=== PATIENT | male | born 1985 | race Caucasian/White ===

== ENCOUNTER 2021-08-05 11:33 | Inpatient (IN) | payer SELFPAY ==
[2021-08-05 13:35] LABS: Hemoglobin 14.7 g/dL (14.0-18.0); Mean Corpuscular HGB CONC 33.4 g/dL (32.0-36.0); Mean Corpuscular Hemoglobin 30.3 pg (27.0-31.0); Mean Corpuscular Volume 90.7 fL (78.0-98.0); Mean Platelet Volume 9.2 fL (7.4-10.4); Platelet Count 163 thou/uL (130-400); RBC Distribution Width 12.8 % (11.5-14.5); Red Blood Cell (RBC) Count 4.86 mill/uL (4.70-6.10)
[2021-08-05 13:51] LABS: ALT (SGPT) 154 U/L (8-55); AST (SGOT) 50 U/L (5-34); Alkaline Phosphatase 178 U/L (40-110); Anion Gap 16 mmol/L (10-20); BUN (Urea Nitrogen) 33 mg/dL (8.9-20.6); Bilirubin, Total 1.7 mg/dL (0.2-1.2); Calc. Creatinine Clearance 0 mL/min (70-130); Calcium 8.4 mg/dL (7.8-10.44); Carbon Dioxide 25 mmol/L (22-29); Chloride 95 mmol/L (98-107); Globulin 2.8 g/dL (2.4-3.5); Glucose 255 mg/dL (70-105); Potassium 4.3 mmol/L (3.5-5.1); Protein, Total 5.8 g/dL (6.0-8.3); Sodium 132 mmol/L (136-145)
[2021-08-05 13:56] LABS: White Blood Cell (WBC) Count 23.5 thou/uL (4.8-10.8)
[2021-08-05 13:57] LABS: Band 34 % (5-11); Lymphocytes 3 % (21-51); MDiff Complete? YES; Metamyelocyte 3 % (0-0); Monocytes 3 % (0-10); Myelocyte 1 % (0-0); Neutrophil 55 % (42-75); Platelet Morphology Comment Appears Adequate; RBC Morphology Normal; Reactive Lymphocytes 1 % (0-10)
[2021-08-05] MEDS ORDERED: Ketorolac Tromethamine 30 MG/ML VIAL ONE (14:48)
[2021-08-05] MEDS ORDERED: Cefepime 2 GM VIAL ONE (14:48)
[2021-08-05] MEDS ORDERED: Ondansetron PF 4 MG/2 ML Vial ONE (14:48)
[2021-08-05] MEDS ORDERED: Morphine 4 MG/ML VIAL ONE ×2 (14:48→17:13)
[2021-08-05] MEDS ORDERED: metroNIDAZOLE 500 MG in Premix Bag 1 BAG IVPB SCH (15:00)
[2021-08-05] MEDS ORDERED: VANCOMYCIN 2 GRAM/400 ML BAG 2 GM in Premix Bag 1 BAG IVPB SCH ×2 (17:15→19:15)
[2021-08-05 17:31] LABS: Actual Bicarbonate (HCO3v) 24 mEq/L (22-28); Base Excess -1.2 mEq/L (-2.0 to +3.0); Calcium, Ionized (venous) 0.97 mmol/L (1.16-1.32); Chloride (VBG) 96 mmol/L (98-106); Hemoglobin (Hb) 15.5 g/dL (13.2-17.3); Potassium (VBG) 4.48 mmol/L (3.70-5.30); Sodium 129.9 mmol/L (133-146); pH (venous) 7.39 (7.32-7.43)
[2021-08-05 17:37] LABS: Bacteria/HPF 2+ HPF (None Seen); Bilirubin Negative (Negative); Blood, Urine 2+ (Negative); Clarity Turbid (Clear); Glucose, Urine (Dipstick) 50 mg/dL (Negative); Ketone, Urine Negative (Negative); Leukocyte 500 Leu/uL (Negative); Nitrite Negative (Negative); Protein, Urine (Dipstick) 70 mg/dL (Neg-Trace); Squamous Epithelial 0-3 HPF (0-3); Urobilinogen Normal mg/dL (Less than 2); WBC/HPF 21-50 HPF (0-3)
[2021-08-05 17:43] LABS: Amphetamine Not Detected (NotDetected); Barbiturates Screen Not Detected (NotDetected); Benzodiazepine Screen Detected (NotDetected); Cocaine Metabolite Screen Not Detected (NotDetected); Methadone Not Detected (NotDetected); Methamphetamine Not Detected (NotDetected); Opiate Screen Detected (NotDetected); Oxycodone Screen Not Detected (NotDetected); Phencyclidine (PCP) Not Detected (NotDetected); THC/Cannabinoid Screen Not Detected (NotDetected); Tricyclic Screen Not Detected (NotDetected)
[2021-08-05] MEDS ORDERED: Ondansetron ODT 4 MG TAB PO PRN (18:26)
[2021-08-05] MEDS ORDERED: Ondansetron PF 4 MG/2 ML Vial IVP PRN (18:26)
[2021-08-05 20:28] VITALS: BMI 31.9
[2021-08-05] MEDS: Morphine 4 MG/ML VIAL SLOW IVP PRN (21:56)
[2021-08-05] MEDS: Famotidine 20 MG TAB PO SCH (21:57)
[2021-08-05] MEDS: Sodium Chloride 0.9% 1,000 ML IV SCH (22:03)
[2021-08-06] MEDS: Morphine 4 MG/ML VIAL SLOW IVP PRN ×5 (02:40→21:08)
[2021-08-06] MEDS: Cefepime 1 GM in Sodium Chloride 0.9% 100 ML IVPB SCH ×2 (02:41→14:01)
[2021-08-06] MEDS: Vancomycin 1.5 GRAM/300 ML BAG 1.5 GM in Premix Bag 1 BAG IVPB SCH ×3 (05:34→21:00)
[2021-08-06] MEDS: Acetaminophen 325 MG TAB PO PRN ×2 (05:42→17:38)
[2021-08-06 07:31] LABS: Hemoglobin 12.6 g/dL (14.0-18.0); Mean Corpuscular Hemoglobin 30.6 pg (27.0-31.0); Mean Corpuscular Volume 90.1 fL (78.0-98.0); Mean Platelet Volume 9.4 fL (7.4-10.4); Platelet Count 136 thou/uL (130-400); RBC Distribution Width 12.9 % (11.5-14.5); Red Blood Cell (RBC) Count 4.11 mill/uL (4.70-6.10); White Blood Cell (WBC) Count 13.6 thou/uL (4.8-10.8)
[2021-08-06 07:35] LABS: ALT (SGPT) 98 U/L (8-55); AST (SGOT) 47 U/L (5-34); Albumin 2.3 g/dL (3.5-5.0); Alkaline Phosphatase 117 U/L (40-110); Anion Gap 15 mmol/L (10-20); BUN (Urea Nitrogen) 24 mg/dL (8.9-20.6); Bilirubin, Total 2.9 mg/dL (0.2-1.2); Calc. Creatinine Clearance 160 mL/min (70-130); Calcium 7.3 mg/dL (7.8-10.44); Carbon Dioxide 20 mmol/L (22-29); Chloride 96 mmol/L (98-107); Globulin 2.7 g/dL (2.4-3.5); Glucose 145 mg/dL (70-105); Potassium 3.7 mmol/L (3.5-5.1); Sodium 127 mmol/L (136-145)
[2021-08-06 08:39] LABS: Band 45 % (5-11); Lymphocytes 9 % (21-51); MDiff Complete? YES; Monocytes 2 % (0-10); Neutrophil 44 % (42-75); Platelet Morphology Comment Appears Adequate; Polychromasia SLIGHT = 2-3 cells (100X) (0-2/hpf); Toxic Granulation SLIGHT
[2021-08-06] MEDS ORDERED: FLU VACC QS2021-22(6MOS UP)/PF 60 MCG/0.5 ML SYRINGE IM ONE (09:00)
[2021-08-06] MEDS: Enoxaparin Sodium 40 MG/0.4 ML SYRINGE SC SCH (10:06)
[2021-08-06] MEDS: Famotidine 20 MG TAB PO SCH ×2 (10:06→21:00)
[2021-08-06] MEDS: Sodium Chloride 0.9% 1,000 ML IV SCH (10:07)
[2021-08-06 11:56] LABS: SARS-CoV-2 PCR by NAA Not Detected (NotDetected)
[2021-08-06] MEDS ORDERED: HYDROcodone/Acetaminophen 10/325 mg Tablet PO PRN (14:49)
[2021-08-06] MEDS ORDERED: Morphine 4 MG/ML VIAL SLOW IVP SCH (15:00)
[2021-08-06] MEDS ORDERED: Morphine 4 MG/ML VIAL SLOW IVP PRN (15:00)
[2021-08-06] MEDS ORDERED: diphenhydrAMINE 50 MG/ML VIAL IVP SCH (17:30)
[2021-08-06] MEDS: diphenhydrAMINE 25 MG CAP PO PRN (21:08)
[2021-08-07] MEDS: Morphine 4 MG/ML VIAL SLOW IVP PRN ×7 (00:48→21:20)
[2021-08-07] MEDS: Vancomycin 1.5 GRAM/300 ML BAG 1.5 GM in Premix Bag 1 BAG IVPB SCH ×4 (02:29→20:43)
[2021-08-07] MEDS: diphenhydrAMINE 25 MG CAP PO PRN (03:40)
[2021-08-07] MEDS: Famotidine 20 MG TAB PO SCH ×2 (08:04→20:44)
[2021-08-07] MEDS: Enoxaparin Sodium 40 MG/0.4 ML SYRINGE SC SCH (08:04)
[2021-08-07 08:07] LABS: Hemoglobin 12.6 g/dL (14.0-18.0); Mean Corpuscular HGB CONC 32.9 g/dL (32.0-36.0); Mean Corpuscular Volume 91.1 fL (78.0-98.0); Mean Platelet Volume 9.3 fL (7.4-10.4); Platelet Count 161 thou/uL (130-400); RBC Distribution Width 12.9 % (11.5-14.5); Red Blood Cell (RBC) Count 4.21 mill/uL (4.70-6.10); White Blood Cell (WBC) Count 10.4 thou/uL (4.8-10.8)
[2021-08-07 08:18] LABS: Anion Gap 16 mmol/L (10-20); BUN (Urea Nitrogen) 23 mg/dL (8.9-20.6); Calc. Creatinine Clearance 177 mL/min (70-130); Calcium 7.9 mg/dL (7.8-10.44); Carbon Dioxide 21 mmol/L (22-29); Chloride 93 mmol/L (98-107); Glucose 102 mg/dL (70-105); Sodium 126 mmol/L (136-145)
[2021-08-07 08:44] LABS: Band 44 % (5-11); Lymphocytes 9 % (21-51); MDiff Complete? YES; Monocytes 2 % (0-10); Neutrophil 41 % (42-75); Platelet Morphology Comment Appears Adequate; Polychromasia SLIGHT = 2-3 cells (100X) (0-2/hpf); Reactive Lymphocytes 4 % (0-10); Toxic Granulation SLIGHT
[2021-08-07 13:36] LABS: Vancomycin, Trough 19.1 ug/mL
[2021-08-07] MEDS: Lorazepam 0.5 MG TAB PO PRN ×2 (18:30→22:59)
[2021-08-08] MEDS: Vancomycin 1.5 GRAM/300 ML BAG 1.5 GM in Premix Bag 1 BAG IVPB SCH ×3 (01:52→17:29)
[2021-08-08] MEDS: Morphine 4 MG/ML VIAL SLOW IVP PRN ×5 (01:55→22:06)
[2021-08-08] MEDS: Lorazepam 0.5 MG TAB PO PRN (05:00)
[2021-08-08 07:40] LABS: Hemoglobin 11.4 g/dL (14.0-18.0); Mean Corpuscular HGB CONC 32.8 g/dL (32.0-36.0); Mean Corpuscular Volume 91.4 fL (78.0-98.0); Mean Platelet Volume 8.3 fL (7.4-10.4); Platelet Count 180 thou/uL (130-400); White Blood Cell (WBC) Count 10.9 thou/uL (4.8-10.8)
[2021-08-08] MEDS: Famotidine 20 MG TAB PO SCH ×2 (07:53→21:50)
[2021-08-08] MEDS: Enoxaparin Sodium 40 MG/0.4 ML SYRINGE SC SCH (07:54)
[2021-08-08 08:01] LABS: Anion Gap 14 mmol/L (10-20); BUN (Urea Nitrogen) 17 mg/dL (8.9-20.6); Calc. Creatinine Clearance 198 mL/min (70-130); Calcium 7.6 mg/dL (7.8-10.44); Carbon Dioxide 22 mmol/L (22-29); Chloride 92 mmol/L (98-107); Glucose 97 mg/dL (70-105); Potassium 3.9 mmol/L (3.5-5.1); Sodium 124 mmol/L (136-145)
[2021-08-08 08:02] LABS: Band 32 % (5-11); Eosinophils 2 % (0-10); Lymphocytes 6 % (21-51); MDiff Complete? YES; Metamyelocyte 3 % (0-0); Monocytes 5 % (0-10); Myelocyte 2 % (0-0); Neutrophil 49 % (42-75); Ovalocytes SLIGHT = 2-5 cells (100X) (0-1/hpf); Polychromasia SLIGHT = 2-3 cells (100X) (0-2/hpf); Reactive Lymphocytes 1 % (0-10)
[2021-08-08] MEDS ORDERED: Sodium Chloride 1 GM TAB PO SCH ×2 (09:00→10:37)
[2021-08-08 13:58] LABS: Vancomycin, Trough 21.4 ug/mL
[2021-08-08] MEDS ORDERED: PROPOFOL 200 MG/20 ML VIAL ONE (14:00)
[2021-08-08] MEDS ORDERED: Ondansetron PF 4 MG/2 ML Vial ONE ×2 (14:00→16:38)
[2021-08-08] MEDS ORDERED: Lidocaine 1% PF 5 ML VIAL ONE (14:00)
[2021-08-08] MEDS ORDERED: Dexamethasone 20 MG/5 ML VIAL ONE (14:00)
[2021-08-08] MEDS ORDERED: Succinylcholine 200 MG/10 ml SYRINGE FS ONE (14:00)
[2021-08-08] MEDS ORDERED: Ondansetron HCl/PF 4 MG/2 ML Vial IVP PRN (16:28)
[2021-08-08] MEDS ORDERED: HYDROmorphone 2 MG/ML VIAL SLOW IVP PRN (16:28)
[2021-08-08] MEDS ORDERED: Promethazine HCl 25 MG/ML VIAL IM PRN (16:28)
[2021-08-08] MEDS ORDERED: Promethazine HCl 25 MG/ML VIAL IVPB PRN (16:28)
[2021-08-08] MEDS ORDERED: Fentanyl 100 MCG/2 ML VIAL ONE (16:38)
[2021-08-08] MEDS: Sodium Chloride 0.9% 1,000 ML IV SCH (17:30)
[2021-08-08 20:05] LABS: Potassium 4.4 mmol/L (3.5-5.1)
[2021-08-08] MEDS: Oxacillin 2 GM in Sodium Chloride 0.9% 100 ML IVPB SCH (21:46)
[2021-08-09] MEDS: Lorazepam 0.5 MG TAB PO PRN ×3 (00:45→23:25)
[2021-08-09] MEDS: Oxacillin 2 GM in Sodium Chloride 0.9% 100 ML IVPB SCH ×6 (01:45→20:43)
[2021-08-09] MEDS: Sodium Chloride 0.9% 1,000 ML IV SCH ×3 (01:46→21:14)
[2021-08-09] MEDS: Morphine 4 MG/ML VIAL SLOW IVP PRN ×4 (04:58→20:43)
[2021-08-09 06:03] LABS: Band 12 % (5-11); Hypochromia SLIGHT = 6-15 cells (100X) (0-5/hpf); Lymphocytes 11 % (21-51); MDiff Complete? YES; Mean Corpuscular HGB CONC 33.2 g/dL (32.0-36.0); Mean Corpuscular Hemoglobin 30.7 pg (27.0-31.0); Mean Corpuscular Volume 92.3 fL (78.0-98.0); Mean Platelet Volume 8.4 fL (7.4-10.4); Monocytes 7 % (0-10); Neutrophil 70 % (42-75); Platelet Count 199 thou/uL (130-400); Platelet Morphology Comment Appears Adequate; RBC Distribution Width 13.1 % (11.5-14.5); Red Blood Cell (RBC) Count 3.59 mill/uL (4.70-6.10)
[2021-08-09 06:11] LABS: Anion Gap 15 mmol/L (10-20); BUN (Urea Nitrogen) 17 mg/dL (8.9-20.6); Calc. Creatinine Clearance 206 mL/min (70-130); Calcium 7.4 mg/dL (7.8-10.44); Carbon Dioxide 22 mmol/L (22-29); Chloride 98 mmol/L (98-107); Glucose 244 mg/dL (70-105); Potassium 4.5 mmol/L (3.5-5.1); Sodium 130 mmol/L (136-145)
[2021-08-09] MEDS: Famotidine 20 MG TAB PO SCH ×2 (09:08→20:43)
[2021-08-09] MEDS: Enoxaparin Sodium 40 MG/0.4 ML SYRINGE SC SCH (09:08)
[2021-08-09 11:33] LABS: Synovial Fluid, Protein 1.6 g/dL (Not Available); Synovial Fluid, Uric Acid 3.2 mg/dL (Not Available)
[2021-08-09 11:52] LABS: RBC Count-Automated (BF) 0 /cu.mm
[2021-08-09 12:10] LABS: WBC/Nucleated-Auto (BF) 1038 /cu.mm
[2021-08-09 12:11] LABS: BF Color Yellow; Body Fluid Source Synovial Fluid; Clarity Cloudy/Turbid (Clear); Tube # EDTA
[2021-08-09 12:15] LABS: BF Segmented Neutrophils 77 %; Cell Count Non Hematic 17 %; Lymphocytes 6 %
[2021-08-09 15:37] LABS: Vancomycin, Trough 1.1 ug/mL
[2021-08-09] MEDS: diphenhydrAMINE 25 MG CAP PO PRN (23:25)
[2021-08-10] MEDS: Oxacillin 2 GM in Sodium Chloride 0.9% 100 ML IVPB SCH ×6 (01:19→20:01)
[2021-08-10] MEDS: Morphine 4 MG/ML VIAL SLOW IVP PRN ×6 (02:24→23:34)
[2021-08-10] MEDS: Sodium Chloride 0.9% 1,000 ML IV SCH (04:46)
[2021-08-10 05:53] LABS: Anion Gap 11 mmol/L (10-20); BUN (Urea Nitrogen) 16 mg/dL (8.9-20.6); Calc. Creatinine Clearance 212 mL/min (70-130); Calcium 7.5 mg/dL (7.8-10.44); Carbon Dioxide 24 mmol/L (22-29); Chloride 100 mmol/L (98-107); Glucose 94 mg/dL (70-105); Potassium 4.2 mmol/L (3.5-5.1); Sodium 131 mmol/L (136-145)
[2021-08-10] MEDS ORDERED: Neomycin-Polymyxin 1 ML AMP ONE (07:00)
[2021-08-10] MEDS ORDERED: HYDROmorphone 0.5 MG/0.5 ML SYRINGE ONE (07:23)
[2021-08-10] MEDS ORDERED: Midazolam HCl 2 mg/2 ml Vial ONE (07:23)
[2021-08-10] MEDS ORDERED: Fentanyl 100 MCG/2 ML VIAL ONE ×3 (07:23→09:38)
[2021-08-10] MEDS ORDERED: Lidocaine 2% Jelly 5 ML TUBE ONE (07:23)
[2021-08-10] MEDS: Famotidine 20 MG TAB PO SCH ×2 (07:26→19:32)
[2021-08-10] MEDS: Enoxaparin Sodium 40 MG/0.4 ML SYRINGE SC SCH (07:26)
[2021-08-10] MEDS ORDERED: Protamine Sulfate 250 MG/25 ML VIAL ONE (08:22)
[2021-08-10] MEDS ORDERED: Dexamethasone 20 MG/5 ML VIAL ONE ×2 (08:22→08:23)
[2021-08-10] MEDS ORDERED: Magnesium Sulfate 1 GM/2 ML VIAL ONE (08:22)
[2021-08-10] MEDS ORDERED: Heparin 5,000 UNITS/ML VIAL ONE (08:22)
[2021-08-10] MEDS ORDERED: Papaverine 60 MG/2 ML VIAL ONE (08:22)
[2021-08-10] MEDS ORDERED: Potassium Chloride 60 MEQ/30 ML VIAL ONE (08:22)
[2021-08-10] MEDS ORDERED: Vecuronium 10 MG VIAL ONE (08:22)
[2021-08-10] MEDS ORDERED: Glycopyrrolate 0.2 MG/ML 5 ML SYRINGE ONE (08:22)
[2021-08-10] MEDS ORDERED: Mannitol 12.5 GM/50 ML ONE (08:22)
[2021-08-10] MEDS ORDERED: Norepinephrine 4 MG/4 ML VIAL ONE (08:22)
[2021-08-10] MEDS ORDERED: Cardioplegic Soln 1,000 ML BAG ONE (08:22)
[2021-08-10] MEDS ORDERED: Calcium Chloride 1 GM/10 ML Abboject SYRINGE ONE (08:22)
[2021-08-10] MEDS ORDERED: Ondansetron PF 4 MG/2 ML Vial ONE ×2 (08:22→08:23)
[2021-08-10] MEDS ORDERED: Heparin 30,000 units/30 ml VIAL ONE (08:22)
[2021-08-10] MEDS ORDERED: Sodium Bicarb 50 MEQ/50 ML Abboject 8.4% SYRINGE ONE (08:22)
[2021-08-10] MEDS ORDERED: Thrombin 5000 UNITS/5 ML VIAL ONE (08:22)
[2021-08-10] MEDS ORDERED: PROPOFOL 200 MG/20 ML VIAL ONE ×2 (08:22→08:23)
[2021-08-10] MEDS ORDERED: Lidocaine 2% PF 100 mg/5 ml Syringe ONE (08:22)
[2021-08-10] MEDS ORDERED: Lidocaine 1% PF 5 ML VIAL ONE ×2 (08:22→08:23)
[2021-08-10] MEDS ORDERED: Aminocaproic Acid 5 GM/20 ML VIAL ONE (08:22)
[2021-08-10] MEDS ORDERED: Ondansetron HCl/PF 4 MG/2 ML Vial IVP PRN (09:10)
[2021-08-10] MEDS ORDERED: Promethazine HCl 25 MG/ML VIAL IVPB PRN (09:10)
[2021-08-10] MEDS ORDERED: Promethazine HCl 25 MG/ML VIAL IM PRN (09:10)
[2021-08-10] MEDS ORDERED: HYDROmorphone 2 MG/ML VIAL SLOW IVP PRN (09:10)
[2021-08-10] MEDS ORDERED: Meperidine HCl/PF 25 MG/ML VIAL ONE (09:29)
[2021-08-10] MEDS: Lorazepam 0.5 MG TAB PO PRN (19:38)
[2021-08-10] MEDS: Acetaminophen 325 MG TAB PO PRN (21:03)
[2021-08-10] MEDS: diphenhydrAMINE 25 MG CAP PO PRN (21:03)
[2021-08-11] MEDS: Oxacillin 2 GM in Sodium Chloride 0.9% 100 ML IVPB SCH ×6 (00:07→20:20)
[2021-08-11] MEDS: Lorazepam 0.5 MG TAB PO PRN ×3 (03:56→19:03)
[2021-08-11] MEDS: Morphine 4 MG/ML VIAL SLOW IVP PRN ×6 (04:45→21:32)
[2021-08-11 07:18] LABS: Anion Gap 10 mmol/L (10-20); BUN (Urea Nitrogen) 14 mg/dL (8.9-20.6); Calc. Creatinine Clearance 231 mL/min (70-130); Calcium 7.2 mg/dL (7.8-10.44); Carbon Dioxide 23 mmol/L (22-29); Chloride 100 mmol/L (98-107); Glucose 111 mg/dL (70-105); Potassium 4.4 mmol/L (3.5-5.1); Sodium 129 mmol/L (136-145)
[2021-08-11] MEDS: Enoxaparin Sodium 40 MG/0.4 ML SYRINGE SC SCH (08:17)
[2021-08-11] MEDS: Famotidine 20 MG TAB PO SCH ×2 (08:18→20:20)
[2021-08-11] MEDS ORDERED: Lidocaine 4% Topical Sol 50 ML BOT TOP SCH (08:45)
[2021-08-11] MEDS: Diazepam 10 MG/2 ML SYRINGE IVP PRN (10:34)
[2021-08-11] MEDS ORDERED: Fentanyl 100 MCG/2 ML VIAL SLOW IVP SCH (12:30)
[2021-08-11] MEDS ORDERED: Fentanyl 100 MCG/2 ML VIAL SLOW IVP PRN (12:36)
[2021-08-11] MEDS: Acetaminophen 325 MG TAB PO PRN (21:31)
[2021-08-11] MEDS: diphenhydrAMINE 25 MG CAP PO PRN (21:32)
[2021-08-12] MEDS: Oxacillin 2 GM in Sodium Chloride 0.9% 100 ML IVPB SCH ×6 (00:01→20:49)
[2021-08-12] MEDS: Morphine 4 MG/ML VIAL SLOW IVP PRN ×7 (00:32→23:54)
[2021-08-12] MEDS: Lorazepam 0.5 MG TAB PO PRN ×4 (00:33→20:47)
[2021-08-12 06:49] LABS: Anion Gap 10 mmol/L (10-20); BUN (Urea Nitrogen) 11 mg/dL (8.9-20.6); Calc. Creatinine Clearance 235 mL/min (70-130); Calcium 7.2 mg/dL (7.8-10.44); Carbon Dioxide 26 mmol/L (22-29); Chloride 98 mmol/L (98-107); Glucose 103 mg/dL (70-105); Potassium 3.9 mmol/L (3.5-5.1); Sodium 130 mmol/L (136-145)
[2021-08-12] MEDS: Enoxaparin Sodium 40 MG/0.4 ML SYRINGE SC SCH (08:38)
[2021-08-12] MEDS: Famotidine 20 MG TAB PO SCH ×2 (08:38→20:48)
[2021-08-12] MEDS: Fentanyl 100 MCG/2 ML VIAL SLOW IVP PRN (08:44)
[2021-08-12 18:56] LABS: SARS-CoV-2 PCR by NAA Not Detected (NotDetected)
[2021-08-12] MEDS: Acetaminophen 325 MG TAB PO PRN (20:47)
[2021-08-12] MEDS: diphenhydrAMINE 25 MG CAP PO PRN (20:48)
[2021-08-13] MEDS: Oxacillin 2 GM in Sodium Chloride 0.9% 100 ML IVPB SCH ×6 (00:02→19:56)
[2021-08-13] MEDS: Morphine 4 MG/ML VIAL SLOW IVP PRN ×7 (03:00→22:28)
[2021-08-13] MEDS: Lorazepam 0.5 MG TAB PO PRN ×3 (03:00→20:50)
[2021-08-13 06:58] LABS: Hemoglobin 7.9 g/dL (14.0-18.0); Mean Corpuscular HGB CONC 33.3 g/dL (32.0-36.0); Mean Corpuscular Hemoglobin 30.8 pg (27.0-31.0); Mean Corpuscular Volume 92.3 fL (78.0-98.0); Mean Platelet Volume 6.6 fL (7.4-10.4); Platelet Count 499 thou/uL (130-400); RBC Distribution Width 13.3 % (11.5-14.5); Red Blood Cell (RBC) Count 2.57 mill/uL (4.70-6.10)
[2021-08-13 07:29] LABS: Band 16 % (5-11); Hypochromia SLIGHT = 6-15 cells (100X) (0-5/hpf); Lymphocytes 18 % (21-51); MDiff Complete? YES; Metamyelocyte 4 % (0-0); Monocytes 4 % (0-10); Myelocyte 2 % (0-0); Neutrophil 56 % (42-75); Nucleated RBC 1 % (0); Platelet Morphology Comment Appears Increased; Polychromasia SLIGHT = 2-3 cells (100X) (0-2/hpf)
[2021-08-13] MEDS ORDERED: ceFAZolin 2 GM/Dextrose 50 ML 2 GM in Premix Bag 1 BAG IVPB SCH (08:00)
[2021-08-13] MEDS: Enoxaparin Sodium 40 MG/0.4 ML SYRINGE SC SCH (09:10)
[2021-08-13] MEDS: Famotidine 20 MG TAB PO SCH ×2 (09:10→19:56)
[2021-08-13] MEDS ORDERED: Ketorolac Tromethamine 30 MG/ML VIAL IVP PRN (09:54)
[2021-08-13] MEDS ORDERED: Zolpidem Tartrate 5 MG TAB PO PRN (09:55)
[2021-08-13] MEDS ORDERED: Naloxone HCl 0.4 mg/ml Vial IV PRN (09:55)
[2021-08-13] MEDS ORDERED: hydrALAZINE 20 MG/ML VIAL SLOW IVP PRN (11:22)
[2021-08-13] MEDS ORDERED: Loperamide HCl 2 MG CAP PO PRN (11:22)
[2021-08-13] MEDS ORDERED: Bisacodyl 5 MG TAB PO PRN (11:22)
[2021-08-13] MEDS ORDERED: GUAIFENESIN SF SOLN 200 MG/10 ML UDCUP PO PRN (11:22)
[2021-08-13] MEDS ORDERED: Calcium Carbonate 500 MG ChewTAB PO PRN (11:22)
[2021-08-13] MEDS ORDERED: Cepastat Lozenges 1 LOZ PO PRN (11:22)
[2021-08-13] MEDS: Fentanyl 100 MCG/2 ML VIAL SLOW IVP PRN (13:24)
[2021-08-13] MEDS: Acetaminophen 325 MG TAB PO PRN (19:55)
[2021-08-14] MEDS: diphenhydrAMINE 25 MG CAP PO PRN ×2 (01:32→21:31)
[2021-08-14] MEDS: Morphine 4 MG/ML VIAL SLOW IVP PRN ×6 (01:32→23:40)
[2021-08-14] MEDS: Oxacillin 2 GM in Sodium Chloride 0.9% 100 ML IVPB SCH ×6 (01:34→20:10)
[2021-08-14] MEDS: Lorazepam 0.5 MG TAB PO PRN ×3 (06:10→21:31)
[2021-08-14] MEDS: Enoxaparin Sodium 40 MG/0.4 ML SYRINGE SC SCH (07:57)
[2021-08-14] MEDS: Polyethylene Glycol 3350 17 GM Packet PO SCH (07:58)
[2021-08-14] MEDS: Famotidine 20 MG TAB PO SCH ×2 (07:58→20:01)
[2021-08-14] MEDS ORDERED: Zolpidem Tartrate 5 MG TAB PO PRN (09:50)
[2021-08-14] MEDS ORDERED: Fentanyl 100 MCG/2 ML VIAL ONE ×3 (12:43→14:36)
[2021-08-14] MEDS ORDERED: ceFAZolin 2 GM/Dextrose 50 ML IVPB ONE (13:05)
[2021-08-14] MEDS ORDERED: Ondansetron PF 4 MG/2 ML Vial ONE (13:16)
[2021-08-14] MEDS ORDERED: PROPOFOL 200 MG/20 ML VIAL ONE (13:16)
[2021-08-14] MEDS ORDERED: Lidocaine 1% PF 5 ML VIAL ONE (13:16)
[2021-08-14] MEDS ORDERED: Dexamethasone 20 MG/5 ML VIAL ONE (13:16)
[2021-08-14] MEDS ORDERED: Neomycin-Polymyxin 1 ML AMP ONE (13:28)
[2021-08-14] MEDS ORDERED: Dexmedetomidine 200 MCG/2 ML VIAL ONE (13:30)
[2021-08-14] MEDS ORDERED: Fentanyl 250 MCG/5 ML VIAL ONE (13:30)
[2021-08-14] MEDS ORDERED: Promethazine HCl 25 MG/ML VIAL IVPB PRN (14:08)
[2021-08-14] MEDS ORDERED: Promethazine HCl 25 MG/ML VIAL IM PRN (14:08)
[2021-08-14] MEDS ORDERED: Ketorolac Tromethamine 30 MG/ML VIAL IVP PRN (14:08)
[2021-08-14] MEDS ORDERED: Ondansetron HCl/PF 4 MG/2 ML Vial IVP PRN (14:08)
[2021-08-14] MEDS ORDERED: Promethazine HCl 25 MG/ML VIAL ONE (14:36)
[2021-08-15] MEDS: Oxacillin 2 GM in Sodium Chloride 0.9% 100 ML IVPB SCH ×6 (00:05→21:26)
[2021-08-15] MEDS: Morphine 4 MG/ML VIAL SLOW IVP PRN ×7 (03:02→23:49)
[2021-08-15] MEDS: Famotidine 20 MG TAB PO SCH ×2 (09:30→20:29)
[2021-08-15] MEDS: Polyethylene Glycol 3350 17 GM Packet PO SCH (09:30)
[2021-08-15] MEDS: Enoxaparin Sodium 40 MG/0.4 ML SYRINGE SC SCH (09:30)
[2021-08-15] MEDS: Fentanyl 250 MCG/5 ML VIAL SLOW IVP PRN (10:07)
[2021-08-15] MEDS ORDERED: Lorazepam 0.5 MG TAB PO SCH (10:30)
[2021-08-15] MEDS: Lorazepam 0.5 MG TAB PO PRN (21:34)
[2021-08-16] MEDS: Lorazepam 0.5 MG TAB PO PRN
[2021-08-16] MEDS: Oxacillin 2 GM in Sodium Chloride 0.9% 100 ML IVPB SCH ×6 (01:17→20:02)
[2021-08-16] MEDS: Morphine 4 MG/ML VIAL SLOW IVP PRN ×6 (03:34→23:34)
[2021-08-16 06:04] LABS: #Eosinphils 0.1 thou/uL (0.0-0.7); #Lymphocytes 1.5 thou/uL (1.20-3.40); #Monocytes 0.7 thou/uL (0.11-0.59); #Neutrophils 8.4 thou/uL (1.40-6.50); %Basophils 0.2 % (0.0-1.0); %Eosinophils 1.2 % (0.0-10.0); %Lymphocytes 14.2 % (21.0-51.0); %Monocytes 6.7 % (0.0-10.0); %Neutrophils 77.6 % (42.0-75.0); Hemoglobin 7.7 g/dL (14.0-18.0); Mean Corpuscular HGB CONC 33.3 g/dL (32.0-36.0); Mean Corpuscular Hemoglobin 31.5 pg (27.0-31.0); Mean Corpuscular Volume 94.5 fL (78.0-98.0); Platelet Count 632 thou/uL (130-400); RBC Distribution Width 13.5 % (11.5-14.5); Red Blood Cell (RBC) Count 2.45 mill/uL (4.70-6.10); White Blood Cell (WBC) Count 10.8 thou/uL (4.8-10.8)
[2021-08-16 06:41] LABS: Anion Gap 8 mmol/L (10-20); BUN (Urea Nitrogen) 14 mg/dL (8.9-20.6); Calc. Creatinine Clearance 218 mL/min (70-130); Calcium 7.8 mg/dL (7.8-10.44); Carbon Dioxide 30 mmol/L (22-29); Chloride 99 mmol/L (98-107); Glucose 94 mg/dL (70-105); Potassium 3.9 mmol/L (3.5-5.1); Sodium 133 mmol/L (136-145)
[2021-08-16] MEDS: HYDROcodone/Acetaminophen 5/325 mg Tablet PO PRN ×2 (08:04→21:14)
[2021-08-16] MEDS: Enoxaparin Sodium 40 MG/0.4 ML SYRINGE SC SCH (08:04)
[2021-08-16] MEDS: Famotidine 20 MG TAB PO SCH ×2 (08:05→19:55)
[2021-08-16] MEDS: Polyethylene Glycol 3350 17 GM Packet PO SCH (08:06)
[2021-08-17] MEDS: Oxacillin 2 GM in Sodium Chloride 0.9% 100 ML IVPB SCH ×6 (00:52→20:14)
[2021-08-17] MEDS: Lorazepam 0.5 MG TAB PO PRN (01:26)
[2021-08-17] MEDS: HYDROcodone/Acetaminophen 5/325 mg Tablet PO PRN ×5 (01:28→21:57)
[2021-08-17] MEDS: Morphine 4 MG/ML VIAL SLOW IVP PRN ×7 (02:34→23:14)
[2021-08-17 06:25] LABS: #Eosinphils 0.1 thou/uL (0.0-0.7); #Lymphocytes 1.8 thou/uL (1.20-3.40); #Monocytes 0.6 thou/uL (0.11-0.59); #Neutrophils 5.6 thou/uL (1.40-6.50); %Basophils 0.2 % (0.0-1.0); %Eosinophils 1.6 % (0.0-10.0); %Monocytes 6.9 % (0.0-10.0); %Neutrophils 69.3 % (42.0-75.0); Hemoglobin 7.4 g/dL (14.0-18.0); Mean Corpuscular HGB CONC 32.8 g/dL (32.0-36.0); Mean Corpuscular Hemoglobin 31.1 pg (27.0-31.0); Mean Corpuscular Volume 94.9 fL (78.0-98.0); Platelet Count 618 thou/uL (130-400); RBC Distribution Width 13.4 % (11.5-14.5); Red Blood Cell (RBC) Count 2.39 mill/uL (4.70-6.10)
[2021-08-17 06:43] LABS: Anion Gap 9 mmol/L (10-20); BUN (Urea Nitrogen) 12 mg/dL (8.9-20.6); Calc. Creatinine Clearance 238 mL/min (70-130); Calcium 7.7 mg/dL (7.8-10.44); Carbon Dioxide 29 mmol/L (22-29); Chloride 99 mmol/L (98-107); Glucose 102 mg/dL (70-105); Potassium 3.8 mmol/L (3.5-5.1); Sodium 133 mmol/L (136-145)
[2021-08-17] MEDS: Famotidine 20 MG TAB PO SCH ×2 (08:36→20:14)
[2021-08-17] MEDS: Enoxaparin Sodium 40 MG/0.4 ML SYRINGE SC SCH (08:36)
[2021-08-17] MEDS: Polyethylene Glycol 3350 17 GM Packet PO SCH (08:36)
[2021-08-17] MEDS ORDERED: Lorazepam 0.5 MG TAB PO PRN (18:20)
[2021-08-18] MEDS: Oxacillin 2 GM in Sodium Chloride 0.9% 100 ML IVPB SCH ×4 (02:04→11:59)
[2021-08-18] MEDS: Morphine 4 MG/ML VIAL SLOW IVP PRN ×7 (02:08→21:34)
[2021-08-18 06:27] LABS: #Eosinphils 0.1 thou/uL (0.0-0.7); #Lymphocytes 1.5 thou/uL (1.20-3.40); #Monocytes 0.6 thou/uL (0.11-0.59); #Neutrophils 4.5 thou/uL (1.40-6.50); %Basophils 0.5 % (0.0-1.0); %Eosinophils 2.1 % (0.0-10.0); %Lymphocytes 22.8 % (21.0-51.0); %Monocytes 8.6 % (0.0-10.0); %Neutrophils 66.1 % (42.0-75.0); Hemoglobin 8.1 g/dL (14.0-18.0); Mean Corpuscular HGB CONC 33.1 g/dL (32.0-36.0); Mean Corpuscular Hemoglobin 31.1 pg (27.0-31.0); Mean Corpuscular Volume 94.1 fL (78.0-98.0); Mean Platelet Volume 5.9 fL (7.4-10.4); Platelet Count 578 thou/uL (130-400); RBC Distribution Width 13.3 % (11.5-14.5); Red Blood Cell (RBC) Count 2.61 mill/uL (4.70-6.10); White Blood Cell (WBC) Count 6.8 thou/uL (4.8-10.8)
[2021-08-18 06:45] LABS: Anion Gap 15 mmol/L (10-20); BUN (Urea Nitrogen) 10 mg/dL (8.9-20.6); Calc. Creatinine Clearance 242 mL/min (70-130); Calcium 8.1 mg/dL (7.8-10.44); Carbon Dioxide 23 mmol/L (22-29); Chloride 98 mmol/L (98-107); Glucose 93 mg/dL (70-105); Potassium 3.7 mmol/L (3.5-5.1); Sodium 132 mmol/L (136-145)
[2021-08-18] MEDS: HYDROcodone/Acetaminophen 5/325 mg Tablet PO PRN ×3 (07:53→20:28)
[2021-08-18] MEDS: Famotidine 20 MG TAB PO SCH ×2 (07:53→20:28)
[2021-08-18] MEDS: Polyethylene Glycol 3350 17 GM Packet PO SCH (07:54)
[2021-08-18] MEDS: Enoxaparin Sodium 40 MG/0.4 ML SYRINGE SC SCH (07:54)
[2021-08-18] MEDS ORDERED: Heparin 1,000 UNITS/ML VIAL ONE (08:56)
[2021-08-18] MEDS ORDERED: Lidocaine 4% Topical Sol 50 ML BOT TOP PRN (09:33)
[2021-08-18] MEDS: Diazepam 10 MG/2 ML SYRINGE IVP PRN (10:55)
[2021-08-18] MEDS: cefTRIAXone\\ROCEPHIN 2 GM in Sodium Chloride 0.9% 100 ML IVPB SCH (15:26)
[2021-08-19] MEDS: Morphine 4 MG/ML VIAL SLOW IVP PRN ×6 (01:22→20:48)
[2021-08-19] MEDS: HYDROcodone/Acetaminophen 5/325 mg Tablet PO PRN ×4 (06:39→23:21)
[2021-08-19 07:57] LABS: SARS-CoV-2 PCR by NAA Not Detected (NotDetected)
[2021-08-19] MEDS: Polyethylene Glycol 3350 17 GM Packet PO SCH (08:10)
[2021-08-19] MEDS: Famotidine 20 MG TAB PO SCH ×2 (08:10→20:47)
[2021-08-19] MEDS: Enoxaparin Sodium 40 MG/0.4 ML SYRINGE SC SCH (08:11)
[2021-08-19] MEDS: cefTRIAXone\\ROCEPHIN 2 GM in Sodium Chloride 0.9% 100 ML IVPB SCH (13:58)
[2021-08-20] MEDS: Morphine 4 MG/ML VIAL SLOW IVP PRN ×5 (02:08→23:59)
[2021-08-20] MEDS: HYDROcodone/Acetaminophen 5/325 mg Tablet PO PRN ×2 (04:25→11:40)
[2021-08-20] MEDS: Famotidine 20 MG TAB PO SCH ×2 (07:53→20:57)
[2021-08-20] MEDS: Enoxaparin Sodium 40 MG/0.4 ML SYRINGE SC SCH (07:53)
[2021-08-20] MEDS: Polyethylene Glycol 3350 17 GM Packet PO SCH (07:55)
[2021-08-20] MEDS: Fentanyl 250 MCG/5 ML VIAL SLOW IVP PRN (09:30)
[2021-08-20] MEDS ORDERED: HYDROcodone/Acetaminophen 10/325 mg Tablet PO PRN (14:17)
[2021-08-20] MEDS: cefTRIAXone\\ROCEPHIN 2 GM in Sodium Chloride 0.9% 100 ML IVPB SCH (15:11)
[2021-08-20] MEDS: HYDROcodone/Acetaminophen 10/325 mg Tablet PO PRN (22:52)
[2021-08-21] MEDS: diphenhydrAMINE 25 MG CAP PO PRN (00:04)
[2021-08-21] MEDS: HYDROcodone/Acetaminophen 10/325 mg Tablet PO PRN ×3 (03:07→11:14)
[2021-08-21] MEDS: Morphine 4 MG/ML VIAL SLOW IVP PRN ×3 (05:45→18:01)
[2021-08-21] MEDS: Enoxaparin Sodium 40 MG/0.4 ML SYRINGE SC SCH (08:16)
[2021-08-21] MEDS: Famotidine 20 MG TAB PO SCH ×2 (08:17→20:41)
[2021-08-21] MEDS: Polyethylene Glycol 3350 17 GM Packet PO SCH (08:19)
[2021-08-21] MEDS: cefTRIAXone\\ROCEPHIN 2 GM in Sodium Chloride 0.9% 100 ML IVPB SCH (14:32)
[2021-08-21] MEDS ORDERED: Acetaminophen/Codeine 30-300mg Tablet PO PRN (15:07)
[2021-08-21] MEDS: Acetaminophen/Codeine 30-300mg Tablet PO PRN ×2 (15:50→21:53)
[2021-08-21] MEDS: Ibuprofen 600 MG TAB PO SCH (20:41)
[2021-08-22] MEDS: Morphine 4 MG/ML VIAL SLOW IVP PRN ×4 (00:51→18:53)
[2021-08-22] MEDS: Ibuprofen 600 MG TAB PO SCH ×4 (03:13→20:17)
[2021-08-22] MEDS: Acetaminophen/Codeine 30-300mg Tablet PO PRN ×4 (04:00→21:43)
[2021-08-22] MEDS: Polyethylene Glycol 3350 17 GM Packet PO SCH (09:45)
[2021-08-22] MEDS: Enoxaparin Sodium 40 MG/0.4 ML SYRINGE SC SCH (09:46)
[2021-08-22] MEDS: Famotidine 20 MG TAB PO SCH ×2 (09:46→20:17)
[2021-08-22 10:17] LABS: #Eosinphils 0.1 thou/uL (0.0-0.7); #Lymphocytes 1.6 thou/uL (1.20-3.40); #Monocytes 0.6 thou/uL (0.11-0.59); %Basophils 0.3 % (0.0-1.0); %Eosinophils 1.9 % (0.0-10.0); %Lymphocytes 21.3 % (21.0-51.0); %Monocytes 7.8 % (0.0-10.0); %Neutrophils 68.7 % (42.0-75.0); Hemoglobin 9.3 g/dL (14.0-18.0); Mean Corpuscular HGB CONC 31.2 g/dL (32.0-36.0); Mean Corpuscular Hemoglobin 29.2 pg (27.0-31.0); Mean Corpuscular Volume 93.4 fL (78.0-98.0); Mean Platelet Volume 6.1 fL (7.4-10.4); Platelet Count 507 thou/uL (130-400); RBC Distribution Width 13.2 % (11.5-14.5); Red Blood Cell (RBC) Count 3.19 mill/uL (4.70-6.10); White Blood Cell (WBC) Count 7.3 thou/uL (4.8-10.8)
[2021-08-22 10:38] LABS: Anion Gap 15 mmol/L (10-20); BUN (Urea Nitrogen) 17 mg/dL (8.9-20.6); Calc. Creatinine Clearance 190 mL/min (70-130); Calcium 9.2 mg/dL (7.8-10.44); Carbon Dioxide 28 mmol/L (22-29); Chloride 98 mmol/L (98-107); Glucose 123 mg/dL (70-105); Potassium 3.6 mmol/L (3.5-5.1); Sodium 137 mmol/L (136-145)
[2021-08-22] MEDS: cefTRIAXone\\ROCEPHIN 2 GM in Sodium Chloride 0.9% 100 ML IVPB SCH (15:47)
[2021-08-23] MEDS: Morphine 4 MG/ML VIAL SLOW IVP PRN ×2 (01:05→06:35)
[2021-08-23] MEDS: Ibuprofen 600 MG TAB PO SCH ×3 (02:10→13:28)
[2021-08-23] MEDS: Acetaminophen/Codeine 30-300mg Tablet PO PRN ×3 (04:22→16:21)
[2021-08-23] MEDS: Famotidine 20 MG TAB PO SCH (08:51)
[2021-08-23] MEDS: Enoxaparin Sodium 40 MG/0.4 ML SYRINGE SC SCH (08:52)
[2021-08-23] MEDS: Polyethylene Glycol 3350 17 GM Packet PO SCH (08:52)
[2021-08-23] MEDS: cefTRIAXone\\ROCEPHIN 2 GM in Sodium Chloride 0.9% 100 ML IVPB SCH (13:29)
[2021-08-23 17:46] VITALS: BP 137/84; TEMP 98.5
== END 2021-08-23 17:48 | disposition home or self-care (01) | DRG 854 ==
LOC: ERS 11:33 → T4-A 16:56
PROVIDERS: ADMIT Internal Medicine; ATTEND Internal Medicine
PROC: 0JBN0ZZ Excision of Right Lower Leg Subcutaneous Tissue and Fascia, Open Approach (ICD-10-PCS; principal; 2021-08-10)
PROC: 0S9C3ZZ Drainage of Right Knee Joint, Percutaneous Approach (ICD-10-PCS; 2021-08-10)
PROC: 0JDL0ZZ Extraction of Right Upper Leg Subcutaneous Tissue and Fascia, Open Approach (ICD-10-PCS; 2021-08-14)
PROC: 0SJC3ZZ Inspection of Right Knee Joint, Percutaneous Approach (ICD-10-PCS; 2021-08-14)
PROC: 02HV33Z Insertion of Infusion Device into Superior Vena Cava, Percutaneous Approach (ICD-10-PCS; 2021-08-18)
PROC: B548ZZA Ultrasonography of Superior Vena Cava, Guidance (ICD-10-PCS; 2021-08-18)
PROC: B5181ZA Fluoroscopy of Superior Vena Cava using Low Osmolar Contrast, Guidance (ICD-10-PCS; 2021-08-18)
DX: A41.01 Sepsis due to Methicillin susceptible Staphylococcus aureus (principal); L02.415 Cutaneous abscess of right lower limb; N39.0 Urinary tract infection, site not specified; E87.2 Acidosis; E87.1 Hypo-osmolality and hyponatremia; L03.313 Cellulitis of chest wall; Z20.822 Contact with and (suspected) exposure to COVID-19; S40.012A Contusion of left shoulder, initial encounter; K76.0 Fatty (change of) liver, not elsewhere classified; M25.461 Effusion, right knee; G89.29 Other chronic pain; R65.20 Severe sepsis without septic shock; M54.9 Dorsalgia, unspecified; F41.9 Anxiety disorder, unspecified; F32.A Depression, unspecified; E86.0 Dehydration; S40.011A Contusion of right shoulder, initial encounter; F11.10 Opioid abuse, uncomplicated; F15.10 Other stimulant abuse, uncomplicated; D64.9 Anemia, unspecified; I10 Essential (primary) hypertension; E88.09 Other disorders of plasma-protein metabolism, not elsewhere classified; Z88.8 Allergy status to other drugs, medicaments and biological substances; Z87.891 Personal history of nicotine dependence; Z90.89 Acquired absence of other organs
CPT/HCPCS: 36415; 36416; 36569; 71260; 72146; 72148; 74177; 76700; 80048; 80053; 80202; 80306; 81003; 81015; 82533; 82550; 82805; 82945; 83605; 83930; 83935; 84157; 84300; 84443; 84484; 84560; 85025; 85060; 85652; 86140; 87040; 87070; 87077; 87081; 87149; 87186; 87205; 89051; 89060; 93005; 93306; 96365; 96375; 96376; C1751; J0690; J0692; J0696; J1100; J1170; J1200; J1644; J1650; J1885; J2001; J2150; J2175; J2250; J2270; J2405; J2440; J2550; J2700; J2704; J2720; J3010; J3360; J3370; J3475; J3480; J3490; J7050; S0017; U0003; U0005